=== PATIENT | female | born 1970 | race Caucasian/White ===

== ENCOUNTER 2022-09-01 11:50 | Emergency (ER) | payer BC | END 2022-09-01 13:50 | disposition home or self-care (01) | LOC: CSHERS 11:50 | DX: M54.12 Radiculopathy, cervical region (principal); M25.511 Pain in right shoulder | CPT/HCPCS: 71045 ==

== ENCOUNTER 2023-01-04 10:29 | Outpatient (CLI) | payer BC | END 2023-01-04 10:30 | disposition home or self-care (01) | LOC: CSHMAMMO 10:29 | PROVIDERS: ATTEND Obstetrics & Gynecology | DX: Z12.31 Encounter for screening mammogram for malignant neoplasm of breast (principal) | CPT/HCPCS: 77063; 77067 ==

== ENCOUNTER 2024-02-15 09:55 | Outpatient (CLI) | payer BC | END 2024-02-15 09:56 | disposition home or self-care (01) | LOC: CSHMAMMO 09:55 | PROVIDERS: ATTEND Obstetrics & Gynecology | DX: Z12.31 Encounter for screening mammogram for malignant neoplasm of breast (principal) | CPT/HCPCS: 77063; 77067 ==

== ENCOUNTER 2024-05-26 10:03 | Outpatient (CLI) | payer BC | END 2024-05-26 10:04 | disposition home or self-care (01) | LOC: CSHMAMMO 10:03 | PROVIDERS: ATTEND Obstetrics & Gynecology | DX: Z13.820 Encounter for screening for osteoporosis (principal); M81.0 Age-related osteoporosis without current pathological fracture; M85.851 Other specified disorders of bone density and structure, right thigh; M85.852 Other specified disorders of bone density and structure, left thigh | CPT/HCPCS: 77080 ==

== ENCOUNTER 2025-04-09 09:14 | Outpatient (CLI) | payer BC ==
[2025-04-09] MEDS ORDERED: Iopamidol 300 61% 100 ML VIAL FS ONE (09:33)
== END 2025-04-09 09:15 | disposition home or self-care (01) ==
LOC: CSHCT 09:14
PROVIDERS: ATTEND Internal Medicine Gastroenterology
DX: R10.30 Lower abdominal pain, unspecified (principal); R19.5 Other fecal abnormalities; K59.00 Constipation, unspecified; K12.0 Recurrent oral aphthae; K21.9 Gastro-esophageal reflux disease without esophagitis; H57.89 Other specified disorders of eye and adnexa; N28.1 Cyst of kidney, acquired; K42.9 Umbilical hernia without obstruction or gangrene
CPT/HCPCS: 74177